=== PATIENT | female | born 2005 | race Hispanic/Latino ===

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

== ENCOUNTER 2024-01-03 17:33 | Emergency (ER) | payer OTHER ==
[2024-01-03] MEDS ORDERED: Acetaminophen 500 MG TAB ONE (18:29)
[2024-01-03 18:33] LABS: #Eosinphils 0.1 10x3/uL (0.0-0.5); #Monocytes 0.3 10x3/uL (0.0-1.1); #Neutrophils 4.8 10x3/uL (1.5-8.4); %Basophils 0.3 % (0.0-2.0); %Eosinophils 0.9 % (0.0-6.0); %Lymphocytes 19.7 % (18.0-47.0); %Monocytes 4.8 % (0.0-10.0); Hematocrit 19.9 % (34.9-44.5); Hemoglobin 6.3 g/dL (12.0-15.5); Mean Corpuscular HGB CONC 31.7 g/dL (32.0-36.0); Mean Corpuscular Hemoglobin 22.7 pg (27.0-33.0); Mean Corpuscular Volume 71.6 fl (81.6-98.3); Mean Platelet Volume 11.9 fl (7.4-10.4); Platelet Count 252 10x3/uL (150-450); RBC Distribution Width 14.4 % (11.5-14.5); Red Blood Cell (RBC) Count 2.78 10x6/uL (3.90-5.03); White Blood Cell (WBC) Count 6.5 10x3/uL (3.5-10.5)
[2024-01-03 18:47] LABS: Bilirubin Neg (Negative); Blood, Urine 250 (Negative); Glucose, Urine (Dipstick) Normal (Negative); Ketone, Urine 15 mg/dL (Negative); Leukocyte 25 (Negative); Nitrite Negative (Negative); Protein, Urine (Dipstick) 30 mg/dl (Neg-Trace); Urobilinogen Normal mg/dL (Less than 2)
[2024-01-03 18:52] LABS: Hypochromia MARKED = >30 cells (100X) (0-5/hpf); Microcytosis MARKED = >30 cells (100X) (0-5/hpf)
[2024-01-03 18:53] LABS: Platelet Adequacy Comment Appears Adequate; Polychromasia SLIGHT = 2-3 cells (100X) (0-2/hpf); Schistocytes SLIGHT = 2-5 cells (100X) (0-1/hpf)
[2024-01-03 18:56] LABS: ALT (SGPT) 11 U/L (8-55); AST (SGOT) 18 U/L (5-34); Albumin 4.7 g/dL (3.5-5.0); Alkaline Phosphatase 69 U/L (40-100); Anion Gap 13 mmol/L (10-20); BUN (Urea Nitrogen) 8 mg/dL (7.0-18.7); Bilirubin, Total 0.7 mg/dL (0.2-1.2); Calc. Creatinine Clearance 0 mL/min (70-130); Calcium 9.3 mg/dL (7.8-10.44); Carbon Dioxide 24 mmol/L (22-29); Chloride 105 mmol/L (98-107); Estimated GFR 127; Glucose 101 mg/dL (70-105); Potassium 3.8 mmol/L (3.5-5.1); Protein, Total 7.7 g/dL (6.0-8.3); Sodium 138 mmol/L (136-145)
[2024-01-03 19:00] LABS: Clarity Cloudy (Clear)
[2024-01-03 19:02] LABS: BHCG - Serum Negative (NEGATIVE)
[2024-01-03 19:03] LABS: Pregs Control Background? CLEAR/WHITE (CLR/WHITE); Pregs Control Bar Appear? YES (CONTROL BAR)
[2024-01-03 19:09] LABS: Bacteria/HPF Rare-Few HPF (None Seen); CAUTI Indications for Culture Fever or rigors; Mucous/LPF Rare LPF (<2+); RBC/HPF Greater than 50 HPF (0-3); Squamous Epithelial 0-3 HPF (0-3); WBC/HPF 0-3 HPF (0-3)
[2024-01-03 19:10] LABS: Urine Culture Reflex No No
== END 2024-01-03 23:33 | disposition home or self-care (01) ==
LOC: CSHERS 17:33
DX: D64.9 Anemia, unspecified (principal); N92.0 Excessive and frequent menstruation with regular cycle
CPT/HCPCS: 36415; 36430; 80053; 81001; 84703; 85025; 86850; 86900; 86901; 96360; 96361; P9016

== ENCOUNTER 2024-01-08 16:32 | Emergency (ER) | payer BC, OTHER ==
[2024-01-08 17:18] LABS: #Eosinphils 0.2 10x3/uL (0.0-0.5); #Monocytes 0.5 10x3/uL (0.0-1.1); #Neutrophils 4.3 10x3/uL (1.5-8.4); %Basophils 0.6 % (0.0-2.0); %Eosinophils 2.2 % (0.0-6.0); %Lymphocytes 25.8 % (18.0-47.0); %Neutrophils 63.8 % (40.0-75.0); Hematocrit 22.2 % (34.9-44.5); Hemoglobin 6.9 g/dL (12.0-15.5); Mean Corpuscular HGB CONC 31.1 g/dL (32.0-36.0); Mean Corpuscular Hemoglobin 23.6 pg (27.0-33.0); Mean Platelet Volume 11.8 fl (7.4-10.4); Platelet Count 227 10x3/uL (150-450); RBC Distribution Width 16.9 % (11.5-14.5); Red Blood Cell (RBC) Count 2.92 10x6/uL (3.90-5.03); White Blood Cell (WBC) Count 6.7 10x3/uL (3.5-10.5)
[2024-01-08 17:34] LABS: ALT (SGPT) 19 U/L (8-55); AST (SGOT) 22 U/L (5-34); Albumin 4.7 g/dL (3.5-5.0); Alkaline Phosphatase 72 U/L (40-100); Anion Gap 12 mmol/L (10-20); BUN (Urea Nitrogen) 11 mg/dL (7.0-18.7); Bilirubin, Total 0.8 mg/dL (0.2-1.2); Calc. Creatinine Clearance 0 mL/min (70-130); Calcium 9.2 mg/dL (7.8-10.44); Carbon Dioxide 25 mmol/L (22-29); Chloride 106 mmol/L (98-107); Estimated GFR 113; Glucose 91 mg/dL (70-105); Potassium 3.7 mmol/L (3.5-5.1); Protein, Total 7.7 g/dL (6.0-8.3); Sodium 139 mmol/L (136-145)
[2024-01-08 17:39] LABS: BHCG - Serum Negative (NEGATIVE); Pregs Control Background? CLEAR/WHITE (CLR/WHITE); Pregs Control Bar Appear? YES (CONTROL BAR)
== END 2024-01-08 23:05 | disposition home or self-care (01) ==
LOC: CSHERS 16:32
DX: N94.6 Dysmenorrhea, unspecified (principal); D50.0 Iron deficiency anemia secondary to blood loss (chronic)
CPT/HCPCS: 36415; 36430; 80053; 84703; 85025; 86850; 86900; 86901; 99283; P9016

== ENCOUNTER 2025-11-12 20:15 | Emergency (ER) | payer OTHER | END 2025-11-12 21:15 | disposition home or self-care (01) | LOC: CSHERS 20:15 | DX: S00.441A External constriction of right ear, initial encounter (principal); W49.04XA Ring or other jewelry causing external constriction, initial encounter | CPT/HCPCS: 99282 ==